=== PATIENT | female | born 1960 | race Caucasian/White ===

== ENCOUNTER 2023-11-02 06:05 | Inpatient (IN) | payer MEDICARE ==
[2023-11-02 06:52] LABS: #Monocytes 0.1 10x3/uL (0.0-1.1); #Neutrophils 5.8 10x3/uL (1.5-8.4); %Basophils 0.1 % (0.0-2.0); %Eosinophils 0.1 % (0.0-6.0); %Lymphocytes 12.8 % (18.0-47.0); %Monocytes 1.2 % (0.0-10.0); %Neutrophils 84.9 % (40.0-75.0); Mean Corpuscular HGB CONC 33.3 g/dL (32.0-36.0); Mean Corpuscular Volume 89.9 fl (81.6-98.3); Mean Platelet Volume 11.9 fl (7.4-10.4); Platelet Count 241 10x3/uL (150-450); RBC Distribution Width 13.4 % (11.5-14.5); Red Blood Cell (RBC) Count 4.67 10x6/uL (3.90-5.03); White Blood Cell (WBC) Count 6.8 10x3/uL (3.5-10.5)
[2023-11-02 07:08] LABS: PTT 29.9 sec (22.0-33.0); Prothrombin Time 11.1 sec (9.5-12.1)
[2023-11-02 07:09] LABS: Anion Gap 14 mmol/L (10-20); BUN (Urea Nitrogen) 30 mg/dL (9.8-20.1); Calc. Creatinine Clearance 0 mL/min (70-130); Calcium 9.5 mg/dL (7.8-10.44); Carbon Dioxide 23 mmol/L (23-31); Chloride 105 mmol/L (98-107); Estimated GFR 62; Glucose 122 mg/dL (80-115); Potassium 4.1 mmol/L (3.5-5.1); Sodium 138 mmol/L (136-145)
[2023-11-02] MEDS ORDERED: Nitroglycerin 50 MG/250 ML BOT 250 ML ONE (07:37)
[2023-11-02] MEDS ORDERED: Lidocaine 1% (PF) 30 ML VIAL ONE ×2 (07:38→08:28)
[2023-11-02] MEDS ORDERED: Midazolam HCl 2 mg/2 ml Vial ONE ×2 (07:38→08:25)
[2023-11-02] MEDS ORDERED: Adenosine 6 mg (2 mL) VIAL ONE (07:38)
[2023-11-02] MEDS ORDERED: Heparin 10,000 UNITS/ 10 ML VIAL ONE ×2 (07:38→08:50)
[2023-11-02] MEDS ORDERED: Atropine Sulfate 1 mg/1 ml Vial ONE (07:38)
[2023-11-02] MEDS ORDERED: fentaNYL 50 mcg/mL 1 mL Vial ONE ×2 (07:38→08:17)
[2023-11-02] MEDS ORDERED: Clopidogrel Bisulfate 75 MG TAB ONE (08:45)
[2023-11-02] MEDS ORDERED: Ondansetron PF 4 MG/2 ML Vial ONE (08:58)
[2023-11-02] MEDS ORDERED: hydrALAZINE 20 MG/ML VIAL ONE (09:07)
[2023-11-02 17:23] VITALS: BMI 31.4
[2023-11-02 17:44] LABS: Hematocrit 41.2 % (34.9-44.5); Hemoglobin 13.3 g/dL (12.0-15.5)
[2023-11-02] MEDS: traMADol HCl 50 MG TAB PO SCH (17:45)
[2023-11-02] MEDS: Sodium Chloride 0.9% 1,000 ML IV SCH (17:46)
[2023-11-02] MEDS: fentaNYL 50 mcg/mL 1 mL Vial SLOW IVP PRN (19:27)
[2023-11-02] MEDS: Atorvastatin Calcium 10 MG TAB PO SCH (20:29)
[2023-11-02] MEDS: Carvedilol 25 MG TAB PO SCH (20:29)
[2023-11-02] MEDS: ALPRAZolam 0.5 MG TAB PO SCH (20:29)
[2023-11-02] MEDS: traMADol HCl 50 MG TAB PO PRN (20:30)
[2023-11-02] MEDS: Amlodipine 5 MG TAB PO SCH ×2 (21:05→23:58)
[2023-11-02] MEDS: hydrALAZINE 20 MG/ML VIAL SLOW IVP PRN (21:52)
[2023-11-02 22:35] LABS: #Monocytes 1.3 10x3/uL (0.0-1.1); #Neutrophils 12.2 10x3/uL (1.5-8.4); %Basophils 0.1 % (0.0-2.0); %Lymphocytes 11.1 % (18.0-47.0); %Monocytes 8.3 % (0.0-10.0); %Neutrophils 80.1 % (40.0-75.0); Hematocrit 37.4 % (34.9-44.5); Hemoglobin 12.4 g/dL (12.0-15.5); Mean Corpuscular HGB CONC 33.2 g/dL (32.0-36.0); Mean Corpuscular Hemoglobin 28.9 pg (27.0-33.0); Mean Corpuscular Volume 87.2 fl (81.6-98.3); Mean Platelet Volume 11.9 fl (7.4-10.4); Platelet Count 251 10x3/uL (150-450); RBC Distribution Width 13.8 % (11.5-14.5); Red Blood Cell (RBC) Count 4.29 10x6/uL (3.90-5.03); White Blood Cell (WBC) Count 15.3 10x3/uL (3.5-10.5)
[2023-11-02] MEDS: Ondansetron PF 4 MG/2 ML Vial IVP PRN (22:40)
[2023-11-02] MEDS: HYDROcodone/Acetaminophen 5/325 mg Tablet PO PRN (22:40)
[2023-11-03 03:59] LABS: #Monocytes 1.1 10x3/uL (0.0-1.1); #Neutrophils 13.5 10x3/uL (1.5-8.4); %Basophils 0.1 % (0.0-2.0); %Lymphocytes 9.9 % (18.0-47.0); %Monocytes 6.9 % (0.0-10.0); %Neutrophils 82.7 % (40.0-75.0); Hematocrit 37.4 % (34.9-44.5); Hemoglobin 12.4 g/dL (12.0-15.5); Mean Corpuscular HGB CONC 33.2 g/dL (32.0-36.0); Mean Corpuscular Volume 87.6 fl (81.6-98.3); Mean Platelet Volume 11.7 fl (7.4-10.4); Platelet Count 249 10x3/uL (150-450); RBC Distribution Width 14.1 % (11.5-14.5); Red Blood Cell (RBC) Count 4.27 10x6/uL (3.90-5.03); White Blood Cell (WBC) Count 16.3 10x3/uL (3.5-10.5)
[2023-11-03 04:12] LABS: ALT (SGPT) 21 U/L (8-55); AST (SGOT) 37 U/L (5-34); Albumin 3.8 g/dL (3.4-4.8); Alkaline Phosphatase 52 U/L (40-110); Anion Gap 13 mmol/L (10-20); BUN (Urea Nitrogen) 21 mg/dL (9.8-20.1); Bilirubin, Total 0.5 mg/dL (0.2-1.2); Calc. Creatinine Clearance 86 mL/min (70-130); Calcium 8.7 mg/dL (7.8-10.44); Carbon Dioxide 19 mmol/L (23-31); Chloride 112 mmol/L (98-107); Estimated GFR 81; Globulin 2.8 g/dL (2.4-3.5); Glucose 125 mg/dL (80-115); Protein, Total 6.6 g/dL (5.8-8.1); Sodium 140 mmol/L (136-145)
[2023-11-03] MEDS: Levothyroxine Sodium 88 MCG TAB PO SCH (05:56)
[2023-11-03] MEDS: Magnesium Oxide 250 MG TAB PO SCH (08:25)
[2023-11-03] MEDS: Sacubitril 24MG/Valsartan 26 MG TAB PO SCH (08:26)
[2023-11-03] MEDS: Carvedilol 25 MG TAB PO SCH (08:26)
[2023-11-03] MEDS: Amlodipine 5 MG TAB PO SCH (08:26)
[2023-11-03] MEDS: Fenofibrate Nanocrystallized 145 MG TAB PO SCH (08:26)
[2023-11-03] MEDS ORDERED: FLU VACC QS2023-24(6MOS UP)/PF 60 MCG/0.5 ML SYRINGE IM ONE (09:00)
[2023-11-03] MEDS: Clopidogrel Bisulfate 75 MG TAB PO SCH (09:27)
[2023-11-03] MEDS: Aspirin 81 mg Enteric Coated Tablet PO SCH (09:27)
[2023-11-03 16:58] VITALS: TEMP 98.4
[2023-11-03 18:35] VITALS: BP 154/72
== END 2023-11-03 19:03 | disposition home or self-care (01) | DRG 322 ==
LOC: CSHCCL 06:05 → CSHIMCU 16:21 → CSHICU 18:10
PROVIDERS: ADMIT Specialist; ATTEND Specialist
PROC: 027034Z Dilation of Coronary Artery, One Artery with Drug-eluting Intraluminal Device, Percutaneous Approach (ICD-10-PCS; principal; 2023-11-02)
DX: I25.10 Atherosclerotic heart disease of native coronary artery without angina pectoris (principal); E78.5 Hyperlipidemia, unspecified; I10 Essential (primary) hypertension; I65.29 Occlusion and stenosis of unspecified carotid artery; I71.40 Abdominal aortic aneurysm, without rupture, unspecified; M19.90 Unspecified osteoarthritis, unspecified site; M45.9 Ankylosing spondylitis of unspecified sites in spine; E11.9 Type 2 diabetes mellitus without complications; E03.9 Hypothyroidism, unspecified; E66.9 Obesity, unspecified; F41.9 Anxiety disorder, unspecified; F32.A Depression, unspecified; Z90.89 Acquired absence of other organs; Z90.49 Acquired absence of other specified parts of digestive tract; Z79.82 Long term (current) use of aspirin; Z79.899 Other long term (current) drug therapy
CPT/HCPCS: 36415; 36416; 80048; 80053; 85025; 85347; 85610; 85730; 92928; 92972; 92978; 93005; 93010; 93454; 99152; 99153; C1753; C1760; C1761; C1769; C1874; C1887; C9600; J0153; J0360; J0461; J1644; J2001; J2250; J2405; J3010; J7050